=== PATIENT | female | born 1965 | race Two or more races ===

== ENCOUNTER 2024-08-18 10:38 | Outpatient (CLI) | payer OTHER | END 2024-08-21 08:11 | disposition home or self-care (01) | LOC: RAD 10:38 | PROVIDERS: ATTEND Orthopaedic Surgery | DX: S82.844A Nondisplaced bimalleolar fracture of right lower leg, initial encounter for closed fracture (principal) ==

== ENCOUNTER 2024-09-17 13:43 | Outpatient (CLI) | payer OTHER | END 2024-09-17 13:49 | disposition home or self-care (01) | LOC: RAD 13:43 | PROVIDERS: ATTEND Orthopaedic Surgery | DX: S82.61XD Displaced fracture of lateral malleolus of right fibula, subsequent encounter for closed fracture with routine healing (principal); X58.XXXD Exposure to other specified factors, subsequent encounter ==

== ENCOUNTER 2024-10-29 14:02 | Outpatient (CLI) | payer OTHER | END 2024-10-29 14:03 | disposition home or self-care (01) | LOC: RAD 14:02 | PROVIDERS: ATTEND Orthopaedic Surgery | DX: S82.61XD Displaced fracture of lateral malleolus of right fibula, subsequent encounter for closed fracture with routine healing (principal) ==

== ENCOUNTER 2024-12-27 08:13 | Outpatient (CLI) | payer OTHER | END 2024-12-27 08:14 | disposition home or self-care (01) | LOC: RAD 08:13 | PROVIDERS: ATTEND Orthopaedic Surgery | DX: S82.61XG Displaced fracture of lateral malleolus of right fibula, subsequent encounter for closed fracture with delayed healing (principal) ==

== ENCOUNTER 2025-03-28 09:37 | Outpatient (CLI) | payer OTHER | END 2025-03-28 09:39 | disposition home or self-care (01) | LOC: RAD 09:37 | PROVIDERS: ATTEND Orthopaedic Surgery | DX: S82.61XG Displaced fracture of lateral malleolus of right fibula, subsequent encounter for closed fracture with delayed healing (principal) ==